=== PATIENT | female | born 1960 | race Caucasian/White ===

== ENCOUNTER → 2017-03-28 | Outpatient (CLI) | payer OTHER | LOC: KOH-I 14:11 | DX: M54.30 Sciatica, unspecified side (principal); M54.16 Radiculopathy, lumbar region; M51.17 Intervertebral disc disorders with radiculopathy, lumbosacral region | CPT/HCPCS: 72100; 72220 ==

== ENCOUNTER → 2017-04-12 | Outpatient (CLI) | payer OTHER | LOC: KOH-I 04-10 10:15 | DX: M48.06 Spinal stenosis, lumbar region (principal); M54.5 Low back pain; M54.16 Radiculopathy, lumbar region; M47.897 Other spondylosis, lumbosacral region; M51.37 Other intervertebral disc degeneration, lumbosacral region; M99.73 Connective tissue and disc stenosis of intervertebral foramina of lumbar region; M99.74 Connective tissue and disc stenosis of intervertebral foramina of sacral region | CPT/HCPCS: 72148 ==

== ENCOUNTER 2020-12-13 10:57 | Emergency (ER) | payer BC ==
[~2020-12-13 10:57] MED LIST: AUGMENTIN 875-1 EACH PO; BACTRIM DS TAB1 EACH PO; BACTROBAN OINT22 GM EXT; BUSPAR 5MG TABLE5 MG PO; CATAPRES 0.1MG0.1 MG PO; NORCO 5-325 TA1 EACH PO
[2020-12-13 16:22] LABS: HEMOGLOBIN 13.7 gm/dl (12.3-15.3); RED BLOOD COUNT 4.48 M/UL (4.00-5.10); WHITE BLOOD COUNT 4.9 K/UL (4.5-11.0)
[2020-12-13 16:48] LABS: BUN/CREATININE RATIO 11 (0-10)
== END 2020-12-13 20:20 | disposition home or self-care (01) ==
LOC: ER1 10:57
PROVIDERS: Family Medicine
DX: U07.1 COVID-19 (principal); I10 Essential (primary) hypertension; J45.909 Unspecified asthma, uncomplicated
CPT/HCPCS: 36415; 71045; 80053; 82550; 82553; 84484; 85025; 99285; M0239

== ENCOUNTER → 2021-01-19 | Outpatient (CLI) | payer BC | LOC: RAD 14:25 | DX: R05 Cough (principal) | CPT/HCPCS: 71046 ==